=== PATIENT | female | born 1975 | race Caucasian/White ===

== ENCOUNTER → 2021-05-10 | Outpatient (CLI) | payer BC | LOC: MAMO 10:45 | DX: Z12.31 Encounter for screening mammogram for malignant neoplasm of breast (principal) | CPT/HCPCS: 77063; 77067 ==

== ENCOUNTER → 2021-07-29 | Outpatient (CLI) | payer BC | LOC: ECHO 11:09 | DX: R00.2 Palpitations (principal) | CPT/HCPCS: ECHO; 93306 ==